=== PATIENT | female | born 1960 | race Caucasian/White ===

== ENCOUNTER 2017-05-03 17:14 | Inpatient (IN) | payer OTHER ==
--- NOTE | 2017-05-03 17:28 | CON.CARD ---
Consult Consult Specialty:: Cardiology Referred by:: Cate Red MD Reason for Consultation:: Abnormal T wave inversions - History of Present Illness Chief Complaint: Cough, chest pain, orthopnea History of Present Illness: 57 yo [place] female with h/o chest pain syndrome with negative coronary angiogram 06/26/2009, HTN/HCVD, diastolic dysfunction presents for 2 day h/o cough with choking sensation, sharp chest pain, orthopnea, dyspnea, light- headedness without true syncope, palpitations, LE edema, EKG shows deep anterior T wave inversions with prolonged QTc with patient taking course of azithromycin. Echocardiogram shows preserved LV function without sig valve abnl. - History Source History Provided By: Patient Limitations to Obtaining History: No Limitations - Past Medical History Cardio/Vascular: Yes: HTN Home Medications - Allergies Allergies/Adverse Reactions: Allergies Allergy/AdvReac Type Severity Reaction Status Date / Time No Known Allergies Allergy Verified 05/03/17 17:23 Review of Systems - Review of Systems Cardiovascular: reports: Chest Pain, Shortness of Breath Respiratory: reports: Cough, Orthopnea Constitutional: Yes: No Distress, Calm Neck: Yes: Supple Respiratory: Yes: Regular, CTA Bilaterally Gastrointestinal: Yes: Normal Bowel Sounds, Soft, Abdomen, Obese Cardiovascular: Yes: Regular Rate and Rhythm JVD: No Carotid Bruit: No Heart Sounds: Yes: S1, S2 Murmur: Yes: Systolic Murmur, Grade 1 Edema: No - Other Data NSR @ 69 with deep symmetric anterolateral T wave inversions suspicious for Wellens T waves Ejection Fraction %: LVEF > or = 40 % Imaging - Results Chest X-ray: Report Reviewed (NAD) Problem List - Problems (1) Hypertensive cardiomyopathy Code(s): I11.9 - HYPERTENSIVE HEART DISEASE WITHOUT HEART FAILURE; I43 - CARDIOMYOPATHY IN DISEASES CLASSIFIED ELSEWHERE Qualifiers: Heart failure presence: without heart failure Qualified Code(s): I11.9 - Hypertensive heart disease without heart failure; I43 - Cardiomyopathy in diseases classified elsewhere; I43 - Cardiomyopathy in diseases classified elsewhere; I43 - Cardiomyopathy in diseases classified elsewhere; I43 - Cardiomyopathy in diseases classified elsewhere (2) Chest pain Code(s): R07.9 - CHEST PAIN, UNSPECIFIED Qualifiers: Chest pain type: unspecified Qualified Code(s): R07.9 - Chest pain, unspecified (3) Prolonged Q-T interval on ECG Code(s): R94.31 - ABNORMAL ELECTROCARDIOGRAM [ECG] [EKG] Assessment/Plan 05/03/2017 Echocardiogram: Normal biventricular size and fxn without sig valve abnl 1. Abnormal EKG - Prolonged QTc in context of azithromycin use 2. HTN/HCVD 3. Diastolic dysfunction 4. GERD 5. Acute bronchitis P:1. Ruling out [place], check BNP, TSH, lipid panel 2. Continue ASA 81 qd, Toprol XL 50 qd, Tribenzor 01/17/ qd after review of electrolytes 3. Monitor on telemetry, avoid QT prolonging agents, keep K>4.5, Mg>2.5 4. Complete abx course 5. Thank you for consultative opportunity
[2017-05-03 17:29] VITALS: BMI 35.9
--- NOTE | 2017-05-03 17:48 | PDOC ---
History of Present Illness - General Chief Complaint: Respiratory Stated Complaint: COLD SYMPTOMS Time Seen by Provider: 05/03/17 17:32 - History of Present Illness Initial Comments: 05/03/17 19:01 The patient is a 57 year old female, with a significant past medical history of hypertension, who presents to the emergency department for EKG changes. Patient states that 3 days ago she began to develop cold-like symptoms including productive cough. Patient states that the next day, she had a coughing fit and felt short of breath, stating that she couldn't breathe. Along with the shortness of breath she felt a pain in her chest which she describes as sharp and similar to her acid reflux but much worse. She took an aspirin, which alleviated the pain, and she was started on azithromycin. Today, pt states that she feels improved. However, while at work she began to feel lightheaded. Her BP was checked and found to be low. An EKG done at that time showed new T wave inversions, which prompted pt to come to ED. Allergies: NKA Past surgical history: None reported. Social history: Nonsmoker. Denies EtOH use and recreational drug use. Primary Care Physician: Key Account Director: Odilia Logan PCP: Faith Mendez " Past History - Past Medical History Allergies/Adverse Reactions: Allergies Allergy/AdvReac Type Severity Reaction Status Date / Time No Known Allergies Allergy Verified 05/03/17 17:23 COPD: No HTN: Yes - Suicide/Smoking/Psychosocial Hx Smoking History: Never smoked Have you smoked in the past 12 months: No Information on smoking cessation initiated: No Hx Alcohol Use: No Drug/Substance Use Hx: No Substance Use Type: None Review of Systems - Review of Systems Comments:: 05/03/17 18:36 "GENERAL/CONSTITUTIONAL: No fever or chills. No weakness. HEAD, EYES, EARS, NOSE AND THROAT: No change in vision. No ear pain or discharge. No sore throat. CARDIOVASCULAR: No chest pain or shortness of breath. RESPIRATORY: + cough, no wheezing, or hemoptysis. GASTROINTESTINAL: No nausea, vomiting, diarrhea or constipation. GENITOURINARY: No dysuria, frequency, or change in urination. MUSCULOSKELETAL: No joint or muscle swelling or pain. No neck or back pain. SKIN: No rash NEUROLOGIC: No headache, vertigo, loss of consciousness, or change in strength/ sensation. ENDOCRINE: No increased thirst. No abnormal weight change. HEMATOLOGIC/LYMPHATIC: No anemia, easy bleeding, or history of blood clots. ALLERGIC/IMMUNOLOGIC: No hives or skin allergy. " *Physical Exam - Vital Signs Last Vital Signs Temp Pulse Resp BP Pulse Ox 99.7 F H 83 20 123/87 98 05/03/17 17:24 05/03/17 17:24 05/03/17 17:24 05/03/17 17:24 05/03/17 17:24 - Physical Exam Comments: 05/03/17 18:36 "GENERAL: Awake, alert, and fully oriented, in no acute distress HEAD: No signs of trauma EYES: PERRLA, EOMI, sclera anicteric, conjunctiva clear ENT: Auricles normal inspection, hearing grossly normal, nares patent, oropharynx clear without exudates. Moist mucosa NECK: Nontender, no stepoffs, Normal ROM, supple, no lymphadenopathy, JVD, or masses LUNGS: Breath sounds equal, clear to auscultation bilaterally. No wheezes, and no crackles HEART: Regular rate and rhythm, normal S1 and S2, no murmurs, rubs or gallops ABDOMEN: Soft, nontender, normoactive bowel sounds. No guarding, no rebound. No masses EXTREMITIES: Normal range of motion, no edema. No clubbing or cyanosis. No cords, erythema, or tenderness NEUROLOGICAL: Cranial nerves II through XII intact. 5/5 strength and sensation in all extremities, Normal speech, normal gait SKIN: Warm, Dry, normal turgor, no rashes or lesions noted. " Heart Score/ECG Review - History History: Slightly suspicious - Electrocardiogram EKG: Non specific repolarization disturbance - Age Age: 45-65 - Risk Factors Risk Factors Heart Score: Yes Hx Hypertension, Yes Positive family hx of cardiac disease Based on the list above the patient has:: 1-2 risk factors - Troponin Troponin: </= normal limit - Score Heart Score - Total: 3 - ECG Impressions Comment:: 05/03/17 18:34 NSR, no MAXIMILIANO/STDs, TWI in V1-V2 and I and aVL, QTc 531, axis wnl ED Treatment Course - LABORATORY CBC & Chemistry Diagram: 05/03/17 18:45 05/03/17 18:45 - RADIOLOGY Radiology Studies Ordered: Category Date Time Status CHEST X-RAY PORTABLE* [RAD] Stat Radiology 05/03/17 17:34 Ordered Medical Decision Making - Medical Decision Making 05/03/17 18:24 57 F with HTN presenting with cough and generalized malaise x 3 days. Pt also had choking episode followed by brief episode of chest pain, which has since resolved. Now chest pain free, though EKG shows new T wave inversions. EKG also notable for QTc prolongation, possibly 2/2 azithromycin use. Pt denies any SOB, and she does not have any clinical s/s of DVT, making PE unlikely as the cause of choking episode. - Labs, cardiac enzymes - CXR - Flu swab - Cardiology consult - Admit tele *DC/Admit/Observation/Transfer Diagnosis at time of Disposition: Abnormal EKG - Discharge Dispostion Admit: Yes - Referrals Referrals: Faith Mendez MD [Primary Care Provider] - - Patient Instructions - Post Discharge Activity - Attestations Physician Attestion: 05/03/17 19:25 I, Dr. Wenceslao Valladares MD, attest that this document has been prepared under my direction and personally reviewed by me in its entirety. I further attest, that it accurately reflects all work, treatment, procedures and medical decision -making performed by me.
[2017-05-03 19:09] LABS: BASO % 0.5 % (0-2.0); EOS % 0.8 % (0-4.5); HEMATOCRIT 44.2 % (32.4-45.2); HEMOGLOBIN 14.8 GM/dL (10.7-15.3); LYMPH % 23.6 % (8-40); MCH 24.7 pg (25.7-33.7); MCHC 33.5 g/dl (32.0-36.0); MEAN CELL VOLUME 73.6 fl (80-96); MEAN PLT VOLUME 8.9 fl (7.5-11.1); MONO % 8.8 % (3.8-10.2); NEUT % 66.3 % (42.8-82.8); PLATELET COUNT 215 K/MM3 (134-434); RBC 6.01 M/mm3 (3.60-5.2); RDW 14.3 % (11.6-15.6); WHITE BLOOD COUNT 8.3 K/mm3 (4.0-10.0)
[2017-05-03 19:19] LABS: INR 1.08 (0.82-1.09); PROTHROMBIN TIME (PATIENT) 12.2 SEC (9.98-11.88)
[2017-05-03 19:22] LABS: ACTIVATED PTT 27.1 SECONDS (26.9-34.4)
[2017-05-03 19:28] LABS: ALBUMIN 4.2 g/dl (3.4-5.0); ANION GAP 8 (8-16); BLOOD UREA NITROGEN 14 mg/dL (7-18); CALCIUM 8.7 mg/dL (8.5-10.1); CHLORIDE 101 mmol/L (98-107); CO2 30 mmol/L (21-32); GLUCOSE,RANDOM 111 mg/dL (74-106); SODIUM 139 mmol/L (136-145)
[2017-05-03 19:31] LABS: ALK PHOS 63 U/L (45-117); BILIRUBIN,TOTAL 0.9 mg/dL (0.2-1.0); CREATININE 1.3 mg/dL (0.55-1.02); SGPT/ALT 38 U/L (12-78); TOT PROT 7.3 g/dl (6.4-8.2)
[2017-05-03 20:16] LABS: POTASSIUM 3.8 mmol/L (3.5-5.1); SGOT/AST 33 U/L (15-37)
[2017-05-03 20:41] LABS: N-TERMINAL BNP 3482.61 pg/ml (5-125)
--- NOTE | 2017-05-03 20:44 | HP ---
Admitting History and Physical - Admission History of Present Illness: 57 year old female, with a significant past medical history of hypertension, who presents to the emergency department for EKG changes. Patient states that 3 days ago she began to develop cold-like symptoms including productive cough. Patient states that the next day, she had a coughing fit and felt short of breath, stating that she couldn't breathe. Along with the shortness of breath she felt a pain in her chest which she describes as sharp and similar to her acid reflux but much worse. She took an aspirin, which alleviated the pain, and she was started on azithromycin. Today, pt states that she feels improved. However, while at work she began to feel lightheaded. Her BP was checked and found to be low. An EKG done at that time showed new T wave inversions, which prompted pt to come to ED. - Past Medical History Cardiovascular: Yes: HTN, Hyperlipdemia Gastrointestinal: Yes: GERD - Smoking History Smoking history: Never smoked Have you smoked in the past 12 months: No - Alcohol/Substance Use Hx Alcohol Use: No Home Medications - Allergies Allergies/Adverse Reactions: Allergies Allergy/AdvReac Type Severity Reaction Status Date / Time No Known Allergies Allergy Verified 05/03/17 17:23 Review of Systems - Review of Systems Cardiovascular: reports: Chest Pain (-resolved) Respiratory: reports: Cough, SOB, SOB on Exertion Gastrointestinal: denies: Abdominal Pain Physical Examination Vital Signs: Vital Signs Temperature 99.7 F H 05/03/17 17:24 Pulse Rate 83 05/03/17 17:24 Respiratory Rate 20 05/03/17 17:24 Blood Pressure 123/87 05/03/17 17:24 O2 Sat by Pulse Oximetry (%) 98 05/03/17 17:24 Cardiovascular: Yes: Regular Rate and Rhythm Respiratory: Yes: Regular, CTA Bilaterally Gastrointestinal: Yes: Normal Bowel Sounds, Soft Labs: CBC, BMP 05/03/17 18:45 05/03/17 18:45 Imaging - Results X-ray: Report Reviewed Problem List - Problems (1) Elevated troponin Assessment/Plan: follow ce ekg echo done--await results asa statin Code(s): R74.8 - ABNORMAL LEVELS OF OTHER SERUM ENZYMES (2) HTN (hypertension) Assessment/Plan: monitor off tribenzor on toprol Code(s): I10 - ESSENTIAL (PRIMARY) HYPERTENSION (3) HLD (hyperlipidemia) Assessment/Plan: lipitor Code(s): E78.5 - HYPERLIPIDEMIA, UNSPECIFIED (4) Abnormal EKG Assessment/Plan: as above Code(s): R94.31 - ABNORMAL ELECTROCARDIOGRAM [ECG] [EKG] (5) Chest pain Code(s): R07.9 - CHEST PAIN, UNSPECIFIED Qualifiers: Chest pain type: unspecified Qualified Code(s): R07.9 - Chest pain, unspecified (6) Prolonged Q-T interval on ECG Assessment/Plan: observe off zithromax ekg Code(s): R94.31 - ABNORMAL ELECTROCARDIOGRAM [ECG] [EKG] (7) URI (upper respiratory infection) Assessment/Plan: flu swab iv abx Code(s): J06.9 - ACUTE UPPER RESPIRATORY INFECTION, UNSPECIFIED (8) Renal insufficiency Assessment/Plan: follow labs Code(s): N28.9 - DISORDER OF KIDNEY AND URETER, UNSPECIFIED (9) Hypothyroid Assessment/Plan: t4 and t3 Code(s): E03.9 - HYPOTHYROIDISM, UNSPECIFIED
[2017-05-03] MEDS ORDERED: guaiFENesin 200 MG/10 ML 10 ML UNIT-DOSE CUPS PO PRN (21:11)
[2017-05-03] MEDS ORDERED: ASPIRIN 325 MG ENTERIC COATED TABLET (FP) PO ONE (21:15)
[2017-05-03] MEDS ORDERED: PANTOPRAZOLE 40 MG TABLET (FP) PO ONE (21:15)
[2017-05-03] MEDS ORDERED: ATORVASTATIN CA 40 MG TABLET (FP) PO SCH (22:00)
[2017-05-03] MEDS ORDERED: METOPROLOL SUCCINATE 50 MG TAB.SR.24H (FP) PO SCH (22:00)
[2017-05-03] MEDS ORDERED: CEFUROXIME AXETIL 250 MG TABLET PO SCH (22:00)
[2017-05-03] MEDS: CEFTRIAXONE 1 G/50 ML PREMIX 50 ML IVPB SCH (23:04)
[2017-05-04] MEDS: HEPARIN NA (PORCINE) 5,000 UNITS/ML 1ML VIAL SQ SCH ×3 (03:35→09:35)
[2017-05-04 08:02] LABS: CHLORIDE 100 mmol/L (98-107); POTASSIUM 3.4 mmol/L (3.5-5.1); SODIUM 140 mmol/L (136-145)
--- NOTE | 2017-05-04 08:09 | PN ---
Progress Note, Physician History of Present Illness: FEELS BETTER NO CHEST PAIN - Current Medication List Current Medications: Active Medications Aspirin (Asa -) 81 mg PO DAILY [facility] Atorvastatin Calcium (Lipitor -) 40 mg PO HS [facility] Last Admin: 05/03/17 23:14 Dose: 40 mg Guaifenesin (Robitussin -) 10 ml PO Q6H PRN PRN Reason: COUGH Heparin Sodium (Porcine) (Heparin -) 5,000 unit SQ BID [facility] Last Admin: 05/04/17 03:35 Dose: Not Given CEFTRIAXONE 1 G/50 ML PREMIX (Ceftriaxone 1 Gm-D5w Bag) 50 mls @ 100 mls/hr IVPB DAILY [facility] Last Admin: 05/03/17 23:04 Dose: 100 mls/hr Metoprolol Succinate (Toprol Xl -) 100 mg PO DAILY [facility] Pantoprazole Sodium (Protonix -) 40 mg PO DAILY [facility] - Objective Vital Signs: Vital Signs Temperature 98.1 F 05/04/17 05:37 Pulse Rate 63 05/04/17 05:37 Respiratory Rate 18 05/04/17 05:37 Blood Pressure 133/79 05/04/17 05:37 O2 Sat by Pulse Oximetry (%) 97 05/04/17 02:00 Cardiovascular: Yes: Regular Rate and Rhythm Respiratory: Yes: Regular, CTA Bilaterally Gastrointestinal: Yes: Normal Bowel Sounds, Soft. No: Tenderness Labs: CBC, BMP 05/03/17 18:45 INR, PTT INR 1.08 (0.82-1.09) 05/03/17 18:45 Problem List - Problems (1) Elevated troponin Assessment/Plan: TRENDING DOWN follow ce ekg echo done--await results asa statin Code(s): R74.8 - ABNORMAL LEVELS OF OTHER SERUM ENZYMES (2) HTN (hypertension) Assessment/Plan: monitor off tribenzor on toprol Code(s): I10 - ESSENTIAL (PRIMARY) HYPERTENSION (3) HLD (hyperlipidemia) Assessment/Plan: lipitor Code(s): E78.5 - HYPERLIPIDEMIA, UNSPECIFIED (4) Abnormal EKG Assessment/Plan: as above Code(s): R94.31 - ABNORMAL ELECTROCARDIOGRAM [ECG] [EKG] (5) Chest pain Code(s): R07.9 - CHEST PAIN, UNSPECIFIED Qualifiers: Chest pain type: unspecified Qualified Code(s): R07.9 - Chest pain, unspecified (6) Prolonged Q-T interval on ECG Assessment/Plan: observe off zithromax ekg Code(s): R94.31 - ABNORMAL ELECTROCARDIOGRAM [ECG] [EKG] (7) URI (upper respiratory infection) Assessment/Plan: flu swab iv abx Code(s): J06.9 - ACUTE UPPER RESPIRATORY INFECTION, UNSPECIFIED (8) Renal insufficiency Assessment/Plan: follow labs improved 0.9 today Code(s): N28.9 - DISORDER OF KIDNEY AND URETER, UNSPECIFIED (9) Hypothyroid Assessment/Plan: t4 and t3 Code(s): E03.9 - HYPOTHYROIDISM, UNSPECIFIED
[2017-05-04 08:13] LABS: ALBUMIN 3.6 g/dl (3.4-5.0); ALK PHOS 52 U/L (45-117); ANION GAP 12 (8-16); BILIRUBIN,TOTAL 0.7 mg/dL (0.2-1.0); BLOOD UREA NITROGEN 16 mg/dL (7-18); CALCIUM 8.5 mg/dL (8.5-10.1); CO2 28 mmol/L (21-32); CREATININE 0.9 mg/dL (0.55-1.02); GLUCOSE,RANDOM 97 mg/dL (74-106); SGOT/AST 23 U/L (15-37); SGPT/ALT 33 U/L (12-78); TOT PROT 6.5 g/dl (6.4-8.2)
[2017-05-04] MEDS ORDERED: POTASSIUM CHLORIDE TABS 20 MEQ TABLET.ER (FP) PO ONE (08:50)
[2017-05-04] MEDS ORDERED: SODIUM CHLORIDE 1,000 ML IV SCH (09:00)
[2017-05-04] MEDS: METOPROLOL SUCCINATE 100 MG TAB.SR.24H (FP) PO SCH ×2 (09:21→09:34)
[2017-05-04] MEDS: CEFTRIAXONE 1 G/50 ML PREMIX 50 ML IVPB SCH (09:22)
[2017-05-04] MEDS ORDERED: PANTOPRAZOLE 40 MG TABLET (FP) PO SCH (10:00)
[2017-05-04] MEDS ORDERED: ASPIRIN 81 MG CHEWABLE TABLETS PO SCH (10:00)
--- NOTE | 2017-05-04 10:30 | EKG ---
Test Reason : Blood Pressure : / mmHG Vent. Rate : 060 BPM Atrial Rate : 060 BPM P-R Int : 184 ms QRS Dur : 114 ms QT Int : 604 ms P-R-T Axes : 028 031 116 degrees QTc Int : 604 ms NORMAL SINUS RHYTHM T WAVE ABNORMALITY, CONSIDER LATERAL ISCHEMIA PROLONGED QT ABNORMAL ECG WHEN COMPARED WITH ECG OF 03-MAY-2017 23:48, QT HAS LENGTHENED Confirmed by ANNABELLA LEMA, SHERRY ([id number]) on 05/04/2017 10:29:53 AM Referred By: Confirmed By:SHERRY WINCHESTER MD
--- NOTE | 2017-05-04 10:32 | EKG ---
Test Reason : Blood Pressure : / mmHG Vent. Rate : 078 BPM Atrial Rate : 078 BPM P-R Int : 192 ms QRS Dur : 106 ms QT Int : 466 ms P-R-T Axes : 019 026 112 degrees QTc Int : 531 ms NORMAL SINUS RHYTHM SEPTAL INFARCT , AGE UNDETERMINED T WAVE ABNORMALITY, CONSIDER LATERAL ISCHEMIA PROLONGED QT ABNORMAL ECG WHEN COMPARED WITH ECG OF 26-JUL-2006 16:33, SIGNIFICANT CHANGES HAVE OCCURRED Confirmed by ANNABELLA LEMA, SHERRY ([id number]) on 05/04/2017 10:32:14 AM Referred By: Confirmed By:SHERRY WINCHESTER MD
--- NOTE | 2017-05-04 10:44 | PN ---
Progress Note, Physician History of Present Illness: No events on telemetry. Comfortable. - Current Medication List Current Medications: Active Medications Aspirin (Asa -) 81 mg PO DAILY [facility] Last Admin: 05/04/17 09:20 Dose: 81 mg Atorvastatin Calcium (Lipitor -) 40 mg PO HS [facility] Last Admin: 05/03/17 23:14 Dose: 40 mg Guaifenesin (Robitussin -) 10 ml PO Q6H PRN PRN Reason: COUGH Heparin Sodium (Porcine) (Heparin -) 5,000 unit SQ BID [facility] Last Admin: 05/04/17 09:35 Dose: Not Given CEFTRIAXONE 1 G/50 ML PREMIX (Ceftriaxone 1 Gm-D5w Bag) 50 mls @ 100 mls/hr IVPB DAILY [facility] Last Admin: 05/04/17 09:22 Dose: 100 mls/hr Sodium Chloride (Normal Saline -) 1,000 mls @ 100 mls/hr IV ASDIR [facility] Last Admin: 05/04/17 09:36 Dose: 100 mls/hr Metoprolol Succinate (Toprol Xl -) 100 mg PO DAILY [facility] Last Admin: 05/04/17 09:34 Dose: Not Given Pantoprazole Sodium (Protonix -) 40 mg PO DAILY [facility] Last Admin: 05/04/17 09:20 Dose: 40 mg - Objective Vital Signs: Vital Signs Temperature 98.1 F 05/04/17 05:37 Pulse Rate 63 05/04/17 05:37 Respiratory Rate 18 05/04/17 05:37 Blood Pressure 133/79 05/04/17 05:37 O2 Sat by Pulse Oximetry (%) 97 05/04/17 02:00 Constitutional: Yes: No Distress, Calm Neck: Yes: Supple Cardiovascular: Yes: Regular Rate and Rhythm Respiratory: Yes: Regular, Diminished Gastrointestinal: Yes: Normal Bowel Sounds, Soft, Abdomen, Obese Edema: No Labs: CBC, BMP 05/03/17 18:45 05/04/17 05:41 INR, PTT INR 1.08 (0.82-1.09) 05/03/17 18:45 - ....Imaging EKG: Report Reviewed (SB @ 57 anterolateral TWI with prolonged QTC 543 msec) Problem List - Problems (1) Hypertensive cardiomyopathy Code(s): I11.9 - HYPERTENSIVE HEART DISEASE WITHOUT HEART FAILURE; I43 - CARDIOMYOPATHY IN DISEASES CLASSIFIED ELSEWHERE Qualifiers: Heart failure presence: without heart failure Qualified Code(s): I11.9 - Hypertensive heart disease without heart failure; I43 - Cardiomyopathy in diseases classified elsewhere; I43 - Cardiomyopathy in diseases classified elsewhere; I43 - Cardiomyopathy in diseases classified elsewhere; I43 - Cardiomyopathy in diseases classified elsewhere (2) Chest pain Code(s): R07.9 - CHEST PAIN, UNSPECIFIED Qualifiers: Chest pain type: unspecified Qualified Code(s): R07.9 - Chest pain, unspecified (3) Prolonged Q-T interval on ECG Code(s): R94.31 - ABNORMAL ELECTROCARDIOGRAM [ECG] [EKG] (4) Demand ischemia Code(s): I24.8 - OTHER FORMS OF ACUTE ISCHEMIC HEART DISEASE (5) Elevated troponin Code(s): R74.8 - ABNORMAL LEVELS OF OTHER SERUM ENZYMES (6) HLD (hyperlipidemia) Code(s): E78.5 - HYPERLIPIDEMIA, UNSPECIFIED Qualifiers: Hyperlipidemia type: pure hypercholesterolemia Qualified Code(s): E78.00 - Pure hypercholesterolemia, unspecified; E78.0 - Pure hypercholesterolemia Assessment/Plan 05/03/2017 Echocardiogram: Normal biventricular size and fxn without sig valve abnl 1. Abnormal EKG - Prolonged QTc in context of azithromycin use 2. HTN/HCVD 3. Diastolic dysfunction 4. GERD 5. Acute bronchitis 6. Demand ischemia P:1. Trops have peaked 2. Continue ASA 81 qd, Toprol XL 100 qd, Lipitor 40 qd 3. Monitor on telemetry, avoid QT prolonging agents, supplement to keep K>4.5, Mg>2.5 4. Complete abx course 5. Plan for [facility] later today to r/o CAD
[2017-05-04 14:48] VITALS: BP 128/66; PULSE 62; TEMP 98.4
--- NOTE | 2017-05-04 14:57 | EKG ---
Test Reason : Blood Pressure : / mmHG Vent. Rate : 057 BPM Atrial Rate : 057 BPM P-R Int : 184 ms QRS Dur : 108 ms QT Int : 558 ms P-R-T Axes : 032 016 120 degrees QTc Int : 543 ms SINUS BRADYCARDIA T WAVE ABNORMALITY, CONSIDER ANTEROLATERAL ISCHEMIA PROLONGED QT ABNORMAL ECG WHEN COMPARED WITH ECG OF 03-MAY-2017 18:08, CRITERIA FOR SEPTAL INFARCT ARE NO LONGER PRESENT Confirmed by ANNABELLA LEMA, SHERRY ([id number]) on 05/04/2017 2:57:20 PM Referred By: Confirmed By:SHERRY WINCHESTER MD
== END 2017-05-04 15:16 | disposition short-term general hospital (02) | DRG 309 ==
LOC: JER 17:14 → JERBED 19:21 → OBSVTOIN 20:45 → J4W 20:52
PROVIDERS: ADMIT Family Medicine; ATTEND Family Medicine
DX: I45.81 Long QT syndrome (principal); I24.8 Other forms of acute ischemic heart disease; R07.9 Chest pain, unspecified; I11.9 Hypertensive heart disease without heart failure; K21.9 Gastro-esophageal reflux disease without esophagitis; Z82.49 Family history of ischemic heart disease and other diseases of the circulatory system; R05 Cough; J06.9 Acute upper respiratory infection, unspecified; N28.9 Disorder of kidney and ureter, unspecified; E66.9 Obesity, unspecified; Z68.35 Body mass index [BMI] 35.0-35.9, adult
CPT/HCPCS: 36415; 71045-TC; 80053; 80061; 82550; 82553; 83036; 83721; 83735; 83880; 84439; 84443; 84480; 84484; 85025; 85610; 85730; 86850; 86900; 86901; 87804; 93005; 93010; 93306-TC; 99283-25; G0378; J1644

== ENCOUNTER 2020-10-22 10:19 | Inpatient (IN) | payer OTHER ==
[2020-10-22] MEDS ORDERED: SODIUM CHLORIDE 1,000 ML IV ONE (11:11)
[2020-10-22] MEDS ORDERED: IBUPROFEN 800 MG/8 ML IJ IVPB ONE ×2 (11:11→11:23)
[2020-10-22] MEDS ORDERED: METOCLOPRAMIDE HCL INJECTION 10 MG/2 ML VIAL IVPUSH ONE (11:11)
[2020-10-22] MEDS ORDERED: METOCLOPRAMIDE HCL INJECTION 10 MG/2 ML VIAL ONE (11:22)
[2020-10-22 12:31] LABS: HEMATOCRIT 40.1 % (32.4-45.2); HEMOGLOBIN 13.3 GM/dL (10.7-15.3); LYMPH % 17.9 % (8-40); MCH 23.8 pg (25.7-33.7); MCHC 33.2 g/dl (32.0-36.0); MEAN CELL VOLUME 71.5 fl (80-96); MEAN PLT VOLUME 8.8 fl (7.5-11.1); MONO % 8.3 % (3.8-10.2); NEUT % 72.8 % (42.8-82.8); PLATELET COUNT 190 10^3/uL (134-434); RBC 5.61 M/mm3 (3.60-5.2); RDW 14.3 % (11.6-15.6); WHITE BLOOD COUNT 10.2 K/mm3 (4.0-10.0)
[2020-10-22 12:32] LABS: VENOUS BASE EXCESS 1.3 mmol/L (-2-2); VENOUS O2 SATURATION 87.7 % (70-80); VENOUS PCO2 41.9 mmHg (38-52); VENOUS PH 7.412 (7.310-7.410)
[2020-10-22 12:38] LABS: INR 1.2 (0.83-1.09); PROTHROMBIN TIME (PATIENT) 14.7 SEC (9.7-13.0)
[2020-10-22 12:46] LABS: CHLORIDE 106 mmol/L (98-107); SODIUM 139 mmol/L (136-145)
[2020-10-22 12:48] LABS: ANION GAP 8 MMOL/L (8-16); BLOOD UREA NITROGEN 11.3 mg/dL (7-18); CALCIUM 8.6 mg/dL (8.5-10.1); CO2 25 mmol/L (21-32)
[2020-10-22 12:49] LABS: GLUCOSE,RANDOM 97 mg/dL (74-106); URINE APPEARANCE CLEAR; URINE BILIRUBIN NEGATIVE (NEGATIVE); URINE COLOR YELLOW; URINE GLUCOSE (UA) NEGATIVE (NEGATIVE); URINE KETONE NEGATIVE (NEGATIVE)
[2020-10-22 12:50] LABS: URINE LEUK ESTERASE TRACE (NEGATIVE); URINE NITRITE NEGATIVE (NEGATIVE); URINE PROTEIN NEGATIVE (NEGATIVE)
[2020-10-22 12:52] LABS: CREATININE 0.5 mg/dL (0.55-1.3); SGOT/AST 16 U/L (15-37); SGPT/ALT 22 U/L (13-61)
[2020-10-22 12:53] LABS: BILIRUBIN,TOTAL 0.7 mg/dL (0.2-1); TOT PROT 7.2 g/dl (6.4-8.2)
[2020-10-22 12:54] LABS: ALK PHOS 43 U/L (45-117)
[2020-10-22] MEDS ORDERED: CEFTRIAXONE 2 GM in DEXTROSE 5%-WATER - 50 ML IVPB ONE (14:36)
[2020-10-22] MEDS ORDERED: VANCOMYCIN 1,500 MG in DEXTROSE 5%-WATER - 250 ML IVPB ONE (14:39)
[2020-10-22] MEDS ORDERED: VANCOMYCIN 1 GRAM (PRE-DOCKED) 1,000 MG/250 ML BAG IVPB ONE ×2 (15:29→15:34)
[2020-10-22] MEDS ORDERED: CEFTRIAXONE 2 GM/100 ML BAG IVPB ONE ×3 (15:31→15:42)
[2020-10-22] MEDS ORDERED: VANCOMYCIN 500 MG VIAL (RESTRICTED TO ID ONLY) ONE (15:34)
[2020-10-22] MEDS: D5-1/2NS+20 MEQ KCL - 20 MEQ/1,000 ML INFUS.BAG IV SCH (19:00)
[2020-10-22] MEDS: HEPARIN NA (PORCINE) 5,000 UNITS/ML 1ML VIAL SQ SCH (21:40)
[2020-10-23 01:34] VITALS: BMI 37.0
[2020-10-23] MEDS ORDERED: ACETAMINOPHEN 325 MG TABLET (FP) PO PRN (06:54)
[2020-10-23 09:04] LABS: BASO % 0.3 % (0-2.0); EOS % 0.2 % (0-4.5); HEMOGLOBIN 12.8 GM/dL (10.7-15.3); MCHC 32.8 g/dl (32.0-36.0); MEAN CELL VOLUME 73.2 fl (80-96); MEAN PLT VOLUME 8.8 fl (7.5-11.1); MONO % 5.4 % (3.8-10.2); NEUT % 82.1 % (42.8-82.8); PLATELET COUNT 175 10^3/uL (134-434); RBC 5.33 M/mm3 (3.60-5.2); WHITE BLOOD COUNT 8.2 K/mm3 (4.0-10.0)
[2020-10-23 09:28] LABS: CALCIUM 8.2 mg/dL (8.5-10.1)
[2020-10-23 09:29] LABS: ALBUMIN 3.6 g/dl (3.4-5.0); BLOOD UREA NITROGEN 7.8 mg/dL (7-18)
[2020-10-23 09:30] LABS: CHOLESTEROL 174 mg/dL (50-200)
[2020-10-23 09:31] LABS: TRIGLYCERIDES 94 mg/dL (0-150)
[2020-10-23 09:32] LABS: CREATININE 0.4 mg/dL (0.55-1.3); LDH 195 U/L (84-246); LDL CHOLESTEROL (ONLY SJRH) 106 mg/dL (5-100)
[2020-10-23 09:33] LABS: BILIRUBIN,TOTAL 0.7 mg/dL (0.2-1); HDL CHOLESTEROL 41 mg/dL (40-60); TOT PROT 6.8 g/dl (6.4-8.2)
[2020-10-23] MEDS: ASCORBIC ACID 500 MG TABLET (FP) PO SCH ×3 (09:47→21:35)
[2020-10-23] MEDS: HEPARIN NA (PORCINE) 5,000 UNITS/ML 1ML VIAL SQ SCH ×2 (09:48→21:36)
[2020-10-23] MEDS: ZINC SULFATE 220 MG CAPSULE (FP) PO SCH ×3 (09:48→21:35)
[2020-10-23] MEDS: D5-1/2NS+20 MEQ KCL - 20 MEQ/1,000 ML INFUS.BAG IV SCH ×2 (09:58→19:29)
[2020-10-23] MEDS ORDERED: PATIENT'S OWN MEDICATION (NON-FORMULARY) (Olmesartan/Amlodipin/Hcthiazid [Tribenzor 40-10- PO SCH (10:00)
[2020-10-23] MEDS ORDERED: PANTOPRAZOLE 40 MG TABLET PO SCH (10:00)
[2020-10-23] MEDS ORDERED: VALSARTAN 160 MG TABLET PO SCH (10:00)
[2020-10-23] MEDS: DEXAMETHASONE SOD PHOSPHATE 4 MG/1 ML VIAL IVPUSH SCH ×3 (13:00→21:35)
[2020-10-23] MEDS ORDERED: amLODIPine BESYLATE 5 MG TABLET (FP) PO SCH (18:30)
[2020-10-23 21:01] VITALS: TEMP 99.2
[2020-10-23 21:54] VITALS: BP 158/84; PULSE 82
== END 2020-10-23 21:30 | disposition short-term general hospital (02) | DRG 54 ==
LOC: JER 10:19 → JERBED 14:43 → J6S 20:57 → JICU 10-23 11:38
PROVIDERS: ADMIT Family Medicine; ATTEND Family Medicine
DX: D32.9 Benign neoplasm of meninges, unspecified (principal); U07.1 COVID-19; G93.6 Cerebral edema; K57.90 Diverticulosis of intestine, part unspecified, without perforation or abscess without bleeding; K21.9 Gastro-esophageal reflux disease without esophagitis; K63.5 Polyp of colon; I10 Essential (primary) hypertension; E78.5 Hyperlipidemia, unspecified; G43.909 Migraine, unspecified, not intractable, without status migrainosus; E66.9 Obesity, unspecified; Z68.37 Body mass index [BMI] 37.0-37.9, adult
CPT/HCPCS: 36415; 70450-TC; 70552-TC; 71045-TC-FY; 76700-TC; 76856-TC; 80053; 80061; 81003; 82550; 82607; 82728; 82803; 83036; 83605; 83615; 83721; 84443; 84484; 85025; 85610; 85651; 86140; 86618; 86800; 86850; 86900; 86901; 87040; 87086; 87798; 87804; 93005; 93010; 99285-25; C9803; J1644; U0003; U0005

== ENCOUNTER 2024-08-09 06:27 | Day surgery (SDC) | payer OTHER, MEDICARE ==
[2024-08-08 14:41] VITALS: BMI 37.8
[2024-08-09 09:51] VITALS: TEMP 98
[2024-08-09 12:31] VITALS: BP 134/61; PULSE 62; RESP 21
== END 2024-08-09 13:20 | disposition home or self-care (01) ==
LOC: JASU-ENDO 06:27
PROVIDERS: ATTEND Internal Medicine Gastroenterology
PROC: 0DBL8ZX Excision of Transverse Colon, Via Natural or Artificial Opening Endoscopic, Diagnostic (ICD-10-PCS; 2024-08-09)
PROC: 0DBL8ZX Excision of Transverse Colon, Via Natural or Artificial Opening Endoscopic, Diagnostic (ICD-10-PCS; 2024-08-09)
PROC: 0DB98ZX Excision of Duodenum, Via Natural or Artificial Opening Endoscopic, Diagnostic (ICD-10-PCS; 2024-08-09)
PROC: 0DB78ZX Excision of Stomach, Pylorus, Via Natural or Artificial Opening Endoscopic, Diagnostic (ICD-10-PCS; 2024-08-09)
PROC: 0DB68ZX Excision of Stomach, Via Natural or Artificial Opening Endoscopic, Diagnostic (ICD-10-PCS; 2024-08-09)
PROC: 0DB48ZX Excision of Esophagogastric Junction, Via Natural or Artificial Opening Endoscopic, Diagnostic (ICD-10-PCS; 2024-08-09)
PROC: 0DBN8ZX Excision of Sigmoid Colon, Via Natural or Artificial Opening Endoscopic, Diagnostic (ICD-10-PCS; principal; 2024-08-09 11:00)
DX: Z12.11 Encounter for screening for malignant neoplasm of colon (principal); D12.3 Benign neoplasm of transverse colon; D37.4 Neoplasm of uncertain behavior of colon; D12.5 Benign neoplasm of sigmoid colon; K57.30 Diverticulosis of large intestine without perforation or abscess without bleeding; K64.8 Other hemorrhoids; K44.9 Diaphragmatic hernia without obstruction or gangrene; K21.00 Gastro-esophageal reflux disease with esophagitis, without bleeding; K29.50 Unspecified chronic gastritis without bleeding; K31.7 Polyp of stomach and duodenum; I10 Essential (primary) hypertension; Z86.0101 Personal history of adenomatous and serrated colon polyps; Z86.0102 Personal history of hyperplastic colon polyps
CPT/HCPCS: 88305-TC; 88342-TC